=== PATIENT | male | born 1955 | race Caucasian/White ===

== ENCOUNTER → 2018-08-07 | Outpatient (CLI) | payer BC ==
--- NOTE | 2018-08-07 14:44 | Diagnostic Imaging Report ---
INDICATION: Lower back pain. COMPARISON: None FINDINGS: Frontal, lateral, and oblique views of the lumbar spine were obtained. Alignment and vertebral heights are maintained. There is no fracture or destructive process. Xcaf-sz-ozqqfuut degenerative disease is noted in the lumbar spine. Limited views of the abdomen demonstrate nonobstructive bowel gas pattern. IMPRESSION: 1. No acute fracture or dislocation of the lumbar spine. 2. Ecvy-zd-evlxvuiq multilevel degenerative changes. Dictated by: Dictated on workstation # [id number]
== END ==
LOC: RAD FS 14:17
PROVIDERS: ATTEND Nurse Practitioner
DX: M47.816 Spondylosis without myelopathy or radiculopathy, lumbar region (principal)
CPT/HCPCS: 72110

== ENCOUNTER → 2018-08-19 | Outpatient (CLI) | payer BC ==
--- NOTE | 2018-08-19 13:48 | Diagnostic Imaging Report ---
PROCEDURE: MRI lumbar spine. INDICATION: Low back pain, right leg pain, spasm, numbness. No known injury. TECHNIQUE: Multiplanar and multisequence noncontrast magnetic resonance imagine was performed of the lumbar spine. CORRELATION STUDY: None. FINDINGS: Perhaps very minimal leftward curvature present. Very mild areas of degenerative retrolisthesis of L2 on L3, L3 on L4, and L4 on L5. Minimal areas of wedging at the thoracolumbar spine. No significant loss of vertebral body height. Probable hemangioma at the T11 level. No concerning geographic lesion. Conus terminates at the L1-L2 level and has an unremarkable appearance. L5-S1: Rather significant loss of disc space height. There is a rather prominent disc and osteophyte formation. Mild ligamentum hypertrophy. The findings overall result in rather significant bilateral foraminal narrowing with some nerve impingement, left greater than right. No significant canal stenosis. L4-L5: Moderate loss of disc space height. Broad-based disc bulge. Slight right paramedian disc protrusion. Ligamentum and facet hypertrophy is present. This results in mild trefoil-type spinal canal configuration. Moderate bilateral foraminal narrowing, left greater than right. Minimal abutment but without significant mass effect upon the exiting nerve roots. L3-L4: Moderate loss of disc space height. Disc and osteophyte formation with slight flattening of the ventral thecal sac. Mild ligamentum and facet hypertrophy results in very mild trefoil-type spinal canal configuration. Some effacement of the perineural fat with abutment of the exiting nerve roots, right greater than left. No high-degree nerve impingement. L2-L3: Moderate loss of disc space height. Broad-based disc bulge with flattening of the ventral thecal sac. Ligamentum and facet hypertrophy results in very mild trefoil-type spinal canal configuration without significant stenosis. No appreciable nerve impingement or foraminal narrowing. L1-L2: Zqhh-hz-ubcqfnbt loss of disc space height. However, no significant canal or foraminal narrowing. Mild facet hypertrophy. The visualized portions of the abdominal aorta and kidneys are negative. No pathologically enlarged central retroperitoneal lymph nodes. IMPRESSION: 1. Advanced multilevel degenerative changes are present. Combination of disc and osteophyte formation along with ligamentum and facet hypertrophy is present. Findings result in significant foraminal narrowing at L5-S1 and to a lesser degree L4-L5 and L3-L4 levels. Slight accentuation with a right paramedian disc protrusion, small in size at the L4-L5 level. Dictated by: Dictated on workstation # [id number]
== END ==
LOC: RAD 11:47
PROVIDERS: ATTEND Nurse Practitioner
DX: M48.07 Spinal stenosis, lumbosacral region (principal); M47.26 Other spondylosis with radiculopathy, lumbar region; M25.78 Osteophyte, vertebrae; M51.16 Intervertebral disc disorders with radiculopathy, lumbar region
CPT/HCPCS: 72148

== ENCOUNTER → 2020-04-05 | Outpatient (CLI) | payer BC ==
[2020-04-05 10:46] LABS: ALANINE AMINOTRANSFERASE 28 U/L (0-55); ALBUMIN 3.9 GM/DL (3.2-4.5); ALKALINE PHOSPHATASE 124 U/L (40-136); BILIRUBIN,TOTAL 0.6 MG/DL (0.1-1.0); BUN/CREATININE RATIO 16; CALCIUM 9.1 MG/DL (8.5-10.1); CARBON DIOXIDE 28 MMOL/L (21-32); CHLORIDE 103 MMOL/L (98-107); CREATININE SERUM 0.85 MG/DL (0.60-1.30); GFR ESTIMATED > 60; GLUCOSE 118 MG/DL (70-105); POTASSIUM 4.5 MMOL/L (3.6-5.0); SODIUM 139 MMOL/L (135-145); TOTAL PROTEIN 6.7 GM/DL (6.4-8.2)
[2020-04-05 14:49] LABS: CHOLESTEROL 170 MG/DL (< 200); HDL CHOLESTEROL 57 MG/DL (40-60); TRIGLYCERIDES 59 MG/DL (<150); VLDL CHOLESTEROL 12 MG/DL (5-40)
== END ==
LOC: LAB FS 09:11
PROVIDERS: ATTEND Family Medicine
DX: I10 Essential (primary) hypertension (principal)
CPT/HCPCS: 36415; 80053; 80061

== ENCOUNTER 2021-10-12 19:27 | Emergency (ER) | payer MEDICARE, OTHER ==
[~2021-10-12] VITALS: Ht 167.7 cm; Wt 104.0 kg
[2021-10-12] MEDS ORDERED: LIDOCAINE 1% INJ 50 ML (XYLOCAINE) VIAL IJ STA (19:39)
[2021-10-12] MEDS ORDERED: TETANUS,DIPTH,PERTUSS P/F (BOOSTRIX) 0.5 ML VIAL IM ONE (19:45)
[2021-10-12] MEDS ORDERED: AUGMENTIN 875 MG TAB (AMOXICILLIN/CLAVULANATE) PO STA (19:46)
--- NOTE | 2021-10-12 19:46 | ED Upper Extremity ---
General Chief Complaint: Laceration Stated Complaint: L INDEX FINGER LAC Nursing Triage Note: Pt was using a table saw and cut his left index finger around the nail. Bleeding is controlled. Source: patient History of Present Illness Date Seen by Provider: Oct 12, 2021 Time Seen by Provider: 19:29 Initial Comments 66-year-old male presenting with complaints of laceration to his left index finger. He was using a table saw. He was cutting a piece of wood and caught his finger. He has had prior injury to the finger in the 70s. He states his pain is 2 out of 10. It is increased with scrubbing and cleaning the wound. He had immediately irrigated and cleaned it at home. This happened about 30 minutes prior to arrival. He has no loss of sensation or movement. He is unsure of his last tetanus booster. Onset: just prior to arrival Severity: mild Pain/Injury Location: left 2nd finger Method of Injury: incised (Cut with table saw) Modifying Factors: Worse With Movement Allergies and Home Medications Allergies Coded Allergies: No Known Allergies (Verified Allergy, Unknown, 10/12/21) Patient Home Medication List Home Medication List Reviewed: Yes Amoxicillin/Potassium Clav (Amox Tr-K Clv 875-125 mg Tab) 875 Mg-125 Mg Tablet, 1 EACH PO BID Prescribed by: SUJATA RENO on 10/12/212037 Review of Systems Constitutional: No chills, No fever EENTM: no symptoms reported Respiratory: no symptoms reported Cardiovascular: no symptoms reported Gastrointestinal: no symptoms reported Genitourinary: no symptoms reported Musculoskeletal: see HPI Skin: see HPI Psychiatric/Neurological: See HPI Past Xodjftb-Uzdehx-Viklnn Hx Patient Social History Tobacco Use?: No Use of E-Cig and/or Vaping dev: No Substance use?: No Alcohol Use?: Yes Alcohol Frequency: Once in a while Pt feels they are or have been: No Immunizations Up To Date First/Initial COVID19 Vaccinat: J&J Second COVID19 Vaccination Paco: J&J Physical Exam Vital Signs Vital Signs - First Documented 10/12/21 19:30 Temp 36.5 Pulse 86 Resp 18 B/P (MAP) 143/88 (106) Pulse Ox 95 O2 Delivery Room Air Capillary Refill : Less Than 3 Seconds Height, Weight, BMI Height: '" Weight: lbs. oz. kg; 36.00 BMI Method: General Appearance: WD/WN, no apparent distress Cardiovascular: normal peripheral pulses Hand: Left (Index finger has laceration with nail injury.), laceration, nail injury, soft tissue tenderness Neurologic/Tendon: normal sensation, normal motor functions, normal tendon functions Neurologic/Psychiatric: alert, oriented x 3 Skin: warm/dry Procedures/Interventions Wound Location: Upper Extremities (left index finger extensor surface) Wound Length (cm): 2.1 Wound's Depth, Shape: linear, sub Q Wound Explored: clean Betadine Prep?: Yes Anesthesia: 1% Lidocaine Volume Anesthetic (ccs): 6 Suture: Ethlion Suture Size: 4-0 Number of Sutures: 3 Layer Closure?: 1 Sterile Dressing Applied?: Yes Progress After obtaining verbal consent from the patient the finger was x-rayed to evaluate for possible foreign body or bony injury. This was clear and the wound was able to be closed. Anesthesia was administered by digital ring block using 1% plain lidocaine. A total of 6 mL of 1% plain lidocaine infiltrated a ring block fashion at the base of his left index finger. The wound was further scrubbed with iodine and sterile water. Then using 4-0 Ethilon a total of 3 simple interrupted stitches were placed to help approximate the wound edges. Patient tolerated procedure well without any immediate complication. Counseled on follow-up and return precautions. Placed in a bulky dressing for tonight and advised he could change in 24 hours. Progress/Results/Core Measures Results/Orders My Orders Orders - SUJATA RENO MD Dipht,Pertuss(Acell),Tet Adult (Boostrix (10/12/21 19:45) Lidocaine 1% Inj 50 Ml (Xylocaine 1% Inj (10/12/21 19:39) Finger(S) (10/12/21 19:40) Suture Set At Bedside (10/12/21 19:40) Amoxicillin/Clavulanate Tablet (Augmenti (10/12/21 19:46) Medications Given in ED Current Medications Medications Dose Ordered Sig/Nolberto Route Start Time Stop Time Status Last Admin Dose Admin Diphtheria/ Tetanus/Acell Pertussis 0.5 ml ONCE ONCE IM 10/12/21 19:45 10/12/21 19:46 DC 10/12/21 19:45 0.5 ML Vital Signs/I&O 10/12/21 10/12/21 19:30 20:45 Temp 36.5 36.5 Pulse 86 86 Resp 18 18 B/P (MAP) 143/88 (106) 143/88 Pulse Ox 95 95 O2 Delivery Room Air Room Air Blood Pressure Mean: 106 Progress Progress Note #1: Progress Note Cleaned wound with iodine and sterile water. No foreign bodies were visualized. We will obtain an x-ray to look for foreign bodies or bony injury. Then plan to place stitches to help approximate the skin laceration wound edges. The cut into his nail will have to heal on its own as there is no way to bring the nail edges together without further cutting his finger. Will start on antibiotics as well as update his tetanus. Progress Note #2: Progress Note No acute fracture or foreign body seen on the x-rays. Patient tolerated laceration repair well without any immediate complication. Counseled on follow- up and return precautions. Diagnostic Imaging Diagonstic Imaging: Xray Plain Films/CT/US/NM/MRI: hand Comments [facility] [place], [place] NAME: JUSTO MONTOYA [facility] REC#: [id number] PT STATUS: REG ER : 1955 PHYSICIAN: SUJATA RENO MD ADMIT DATE: 10/12/21/ER FS Signed Date of Exam:10/12/21 FINGER(S) EXAM: Finger(s) INDICATION: Table saw injury. Left index finger pain. COMPARISON: None. FINDINGS/ IMPRESSION: No fracture or malalignment. No radiopaque foreign body. 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 Dictated by: Dictated on workstation # [id number] Dict: 10/12/211958 Trans: 10/12/212012 PJE [id number] Interpreted by: ERICKA GRIFFIN MD Electronically signed by: ERCIKA GRIFFIN MD 10/12/212012 Reviewed: Reviewed by Me Departure Impression Primary Impression: Laceration of left index finger w/o foreign body with damage to nail Qualified Codes: S61.311A - Laceration without foreign body of left index finger with damage to nail, initial encounter Additional Impression: Contact with powered saw as cause of accidental injury Disposition: HOME, SELF-CARE Condition: Stable Departure-Patient Inst. Decision time for Depature: 20:35 Referrals: JUANJOSE GLEZ MD (PCP/Family) Primary Care Physician Patient Instructions: Laceration Repair With Stitches ED, Common Finger Injuries ED Add. Discharge Instructions: Keep wound clean and dry for the first 24 hours. After that you may wash it like normal but do not soak it. Keep the wound covered with a Band-Aid and antibiotic ointment at least for the next 3 to 4 days while the skin is trying to heal and the nail injury is trying to heal. If you see redness streaking up your finger and hand, pus draining from the wound, fever over 101 Fahrenheit pulse would all be reasons to be seen again as he may need IV antibiotics. Have the stitches removed in 10 to 14 days. You may return here to have that done or go through your primary care provider. All discharge instructions reviewed with patient and/or family. Voiced understanding. Scripts Amoxicillin/Potassium Clav (Amox Tr-K Clv 875-125 mg Tab) 875 Mg-125 Mg Tablet 1 EACH PO BID for finger laceration for 7 Days, #14 TAB 0 Refills Prov: SUJATA RENO MD 10/12/21 SUJATA RENO MD Oct 12, 2021 19:46
--- NOTE | 2021-10-12 20:05 | Diagnostic Imaging Report ---
EXAM: Finger(s) INDICATION: Table saw injury. Left index finger pain. COMPARISON: None. FINDINGS/ IMPRESSION: No fracture or malalignment. No radiopaque foreign body. 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 Dictated by: Dictated on workstation # [id number]
[2021-10-12] MEDS ORDERED: AMOX1TAB12 PO (20:38)
[2021-10-12 20:45] VITALS: BP 143/88
== END 2021-10-12 20:45 | disposition home or self-care (01) ==
LOC: EDUNIT# 19:27 → ER FS 19:28
DX: S61.311A Laceration without foreign body of left index finger with damage to nail, initial encounter (principal); Z23 Encounter for immunization; W31.2XXA Contact with powered woodworking and forming machines, initial encounter
CPT/HCPCS: 73140; 90715